=== PATIENT | female | born 2005 | race Hispanic/Latino ===

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

== ENCOUNTER 2023-07-01 10:36 | Emergency (ER) | payer OTHER, SELFPAY ==
--- OUTSIDE RECORDS SUMMARY | 2023-07-01 10:39 | XMS REPORT | Continuity of Care Document ---
:2005 Author Organization [facility] t Address [address] [facility] [address] [place] [address] Care Team Providers Name Role Phone ARELIS CARRANZA Primary Care Physician Unavailable FABIOLA DOYLE Attending Clinician Unavailable PRISCILLA DAUGHERTY Attending Clinician Unavailable Priscilla Daugherty MD Attending Clinician Only, Ang Db Test Attending Clinician Unavailable Malinda Linares Attending Clinician MALINDA PARADA Attending Clinician Unavailable Doctor Unassigned, [place] Attending Clinician Unavailable Holden Hernandez MD Attending Clinician HOLDEN HERNANDEZ Attending Clinician Unavailable Fabiola Doyle PA-C Attending Clinician THOMAS MACHADO II Attending Clinician Unavailable Payers Payer Name Policy Type Policy Number Effective Date Expiration Date [facility] [id number] 2017 00:00:00 Problems Condition Condition Condition Status Onset Resolution Last Treating Co mments Source Name Details Category Date Date Treatment Clinician Date Nexplanon Nexplanon Disease Active Uni vers in place in place 01-27 ity of 00:00: [address] Allergies, Adverse Reactions, Alerts Allergy Allergy Status Severity Reaction(s) Onset Inactive Treating Comm ents Source Name Type Date Date Clinician NO KNOWN Drug Active Univers ALLERGIE Class ity of S [facility] Social History Social Habit Start Date Stop Date Quantity Comments Source History SDOH University o f Alcohol Frequency [place] M edical Branch History SDOH University o f Alcohol Std [place] Medical Drinks Branch History SDOH University o f Alcohol Binge [place] [facility] al Branch Exposure to Not sure University SARS-CoV-2 [facility] (event) Branch Alcohol intake 2021-05-17 2021-05-17 Current drinker Unive rsity of 00:00:00 00:00:00 of alcohol [facility] (finding) Branch Tobacco use and 2021-01-12 2021-01-12 Never used Universit y of exposure 00:00:00 00:00:00 [facility] Alcohol Comment 2021-01-12 2021-01-12 social Universit y of 00:00:00 00:00:00 [facility] Sex Assigned At [birth year] Universit y of 00:00:00 00:00:00 [facility] Smoking Status Start Date Stop Date Source Never smoker [facility] Medications Ordered Filled Start Stop Current Ordering Indication Dosage Frequency Signature Comments Components Source Medication Medication Date Date Medication? Clinician (SIG) Name Name montelukast Yes [id number] 10mg Take 1 Univers (SINGULAIR) -27 tablet by ity of 10 mg 00:00: mouth [place] tablet 00 daily. Medical Branch fluticasone Yes [id number] 2{spray Use 2 Univers propionate 9-27 } Sprays in ity of 50 00:00: each [place] mcg/actuati 00 nostril 2 Med ical on nasal (two) Branch spray times daily. azelastine Yes [id number] 2{spray Use 2 Univers 137 mcg 9-27 } Sprays in ity of (0.1 %) 00:00: each [place] nasal spray 00 nostril 2 Med ical (two) Branch times daily. Use in each nostril as directed VYVANSE 40 Univer s mg capsule 5-10 05-17 ity of 00:00: 00:00 [place] 00 :00 Medical Branch Vital Signs Vital Name Observation Time Observation Value Comments Source Systolic blood 2021-05-17 14:19:00 115 mm[Hg] Univer sity of pressure [facility] Diastolic blood 2021-05-17 14:19:00 75 mm[Hg] Unive rsity of pressure [facility] Heart rate 2021-05-17 14:19:00 76 [facility] Body temperature 2021-05-17 14:19:00 36.33 [place] Univ ersity of [facility] Respiratory rate 2021-05-17 14:19:00 20 /[facility] height 2021-05-17 14:19:00 160 [facility] Body weight 2021-05-17 14:19:00 84.868 kg [facility] BMI 2021-05-17 14:19:00 33.14 kg/m2 [facility] Body mass index 2021-05-17 14:19:00 97.00 % Unive rsity of (BMI) [Percentile] [facility] ical Per age and sex Branch Oxygen saturation in 2021-05-17 14:19:00 94 /min [facility] Arterial blood by [facility] Pulse oximetry Branch Procedures This patient has no known procedures. Encounters Start End Encounter Admission Attending Care Care Encounter Source Date/Time Date/Time Type Type Clinicians Facility Department ID 2022-12-13 2022-12-13 Outpatient SFA [facility] [id number] [place] 13:46:03 13:46:03 [id number] [place] 2022-01-13 2022-01-13 Outpatient Sanya DOYLE [facility] [id number] [facility] 15:30:00 15:30:00 FABIOLA waggoner [facility] [place] [facility] 2021-08-16 2021-08-16 Outpatient Sanya DAUGHERTY [facility] [id number] [facility] 12:00:00 12:00:00 PRISCILLA dockery [facility] 2021-05-17 2021-05-17 Office Raghav [facility] [id number] [facility] 09:06:30 10:35:58 Visit Priscilla TOWNSEND [id number] ity of CARE [id number] Nerissa KELLY [phone] Oh dical 056 Branch 2021-05-17 2021-05-17 Outpatient Sanya DAUGHERTY [facility] [id number] Univers 09:00:00 09:00:00 PRISCILLA waggoner o f [facility] 2021-05-17 2021-05-17 Letter Raghav [facility] [id number] Univers 00:00:00 00:00:00 (Out) Priscilla TOWNSEND [id number] [id number] [place] [id number] [place] dical [address] [place] 2021-05-08 2021-05-08 Laboratory Only, Ang Db Test [facility] [id number] Univers 17:16:37 17:31:37 [facility] [id number] ity of [place] [id number] Brijesh as Jun?Blea [phone] Oh dical [address] Medical Office [facility] [address] 2021-05-08 2021-05-08 Outpatient R TAL [facility] [id number] Univers 17:30:00 17:30:00 MALINDA waggoner o f [facility] 2021-04-16 2021-04-16 Orders Doctor NIKKIE [id number] Univers 00:00:00 00:00:00 Only Unassigned, EM[place] [id number] ity of [place] [facility] [id number] Brijesh as [phone] [address] 2021-01-27 2021-01-27 Office Holden Hernandez [facility] [id number] Univers 14:15:24 15:05:18 Visit Cam Jesus [id number] [id number] [phone] Oh dical nal [address] [facility] 2021-01-27 2021-01-27 Office Holden Hernandez [place] [id number] 14:15:24 15:05:18 Visit Cam Jesus [id number] [place] [id number] Professio [phone] [address] 2021-01-27 2021-01-27 Outpatient R HOLDEN HERNANDEZ [facility] [id number] Univers 14:30:00 14:30:00 ity [facility] [place] [facility] 2021-01-27 2021-01-27 Orders Doctor NIKKIE [id number] Univers 00:00:00 00:00:00 Only Unassigned, EM[place] [id number] ity of [place] [facility] [id number] Brijesh as [phone] [address] 2021-01-27 2021-01-27 Letter Holden Hernandez [facility] [id number] Univers 00:00:00 00:00:00 (Out) Bryce Lee [id number] [id number] [phone] [address] 2021-01-12 2021-01-12 Office Vivek [facility] [id number] Univers 16:03:38 16:33:38 Visit Fabiola Lee [id number] [id number] [phone] [address] 2021-01-12 2021-01-12 Outpatient R VIVEK [facility] [id number] Univers 15:30:00 15:30:00 FABIOLA waggoner [facility] [place] [facility] 2021-01-12 2021-01-12 Hortensia Doyle [facility] [id number] Univers 00:00:00 00:00:00 (Out) Fabiolajazmin Lee [id number] [id number] [phone] [address] 2020-06-16 2020-06-16 Outpatient R JEANNETTE WARREN [facility] [id number] Univers 13:00:00 13:00:00 THOMAS waggoner [facility] [place] [facility] Results This patient has no known results.
[2023-07-01] MEDS ORDERED: dexAMETHasone 10 MG/ML VIAL ONE (11:15)
[2023-07-01] MEDS ORDERED: KETOROLAC 30 MG/ML INJ ONE (11:15)
[2023-07-01] MEDS ORDERED: dexAMETHasone 4 MG TAB ONE (11:17)
[2023-07-01] MEDS ORDERED: MAGNES/ALUMIN/SIMET 30ML UCUP ONE (11:35)
--- NOTE | 2023-07-01 12:04 | ER ---
Nurse's Notes [facility] Name: Wendy Pereira Age: 18 yrs Sex: Female : 2005 Arrival Date: 07/01/2023 Time: 10:36 Bed 17 Private MD: Diagnosis: Acute pharyngitis, unspecified Presentation: 07/01 10:44 Chief complaint: Patient states: WISE, sore throat, body aches, fever, R eye pain, ll1 fatigue for 3 days. Coronavirus screen: Vaccine status: Patient reports being unvaccinated. Client denies travel out of the [place] in the last 14 days. chills, fatigue, fever, headache, muscle pain, sore throat, Client presents with at least one sign or symptom that may indicate coronavirus-19. Standard/surgical mask placed on the client. Ebola Screen: Patient denies travel to an Ebola-affected area in the 21 days before illness onset. Initial Sepsis Screen: Does the patient meet any 2 criteria? No. Patient's initial sepsis screen is negative. Does the patient have a suspected source of infection? Yes: Other: sore throat, fever, WISE. Risk Assessment: Do you want to hurt yourself or someone else? Patient reports no desire to harm self or others. Onset of symptoms was June 29, 2023. 10:44 Method Of Arrival: Ambulatory ll1 10:44 Acuity: CRYS 4 ll1 Triage Assessment: 10:48 Headache History: The patient has had previous headaches and this one is similar to rs5 previous episodes. General: Appears in no apparent distress. uncomfortable, Behavior is calm, cooperative. Pain: Also complains of. Pain: Complains of pain in throat, head Pain does not radiate. Pain currently is 8 out of 10 on a pain scale. Quality of pain is described as aching, Is continuous. Historical: - Allergies: 10:44 No Known Allergies; ll1 - PMHx: 10:44 ADD/ADHD; seasonal allergies; Asthma; ll1 - PSHx: 10:44 None; ll1 - Immunization history:: Client reports having NOT received the Covid vaccine. - Social history:: Smoking status: Reported history of juuling and/or vaping. Patient denies any tobacco usage or history of. Screenin:42 [facility] ED Fall Risk Assessment (Adult) History of falling in the last 3 months, rs5 including since admission No falls in past 3 months (0 pts) Confusion or Disorientation No (0 pts) Intoxicated or Sedated No (0 pts) Impaired Gait No (0 pts) Mobility Assist Device Used No (0 pt) Altered Elimination No (0 pt) Score/Fall Risk Level 0 - 2 = Low Risk Oriented to surroundings, Maintained a safe environment. 10:42 Abuse screen: Denies threats or abuse. Nutritional screening: No deficits noted. rs5 Tuberculosis screening: No symptoms or risk factors identified. Assessment: 10:48 General: Appears in no apparent distress. uncomfortable, Behavior is calm, cooperative. rs5 Pain: Complains of pain in throat Pain does not radiate. Pain currently is 8 out of 10 on a pain scale. Quality of pain is described as burning, aching, Pain began 2-3 days ago. Is continuous. Neuro: Level of Consciousness is awake, alert, obeys commands, Oriented to person, place, time, situation. 10:48 Cardiovascular: Heart tones S1 S2 present Rhythm is regular. Respiratory: Airway is rs5 patent Respiratory effort is even, unlabored, Respiratory pattern is regular, symmetrical, Breath sounds are clear bilaterally. GI: Abdomen is round non-distended, Bowel sounds present X 4 quads. Abd is soft and non tender X 4 quads. 10:48 : No signs and/or symptoms were reported regarding the genitourinary system. EENT: No rs5 signs and/or symptoms were reported regarding the EENT system. Derm: Skin Skin is pink, warm \T\ dry. Musculoskeletal: Range of motion: intact in all extremities. 11:33 Reassessment: Patient and/or family updated on plan of care and expected duration. Pain rs5 level reassessed. Patient is alert, oriented x 3, equal unlabored respirations, skin warm/dry/pink. Patient states feeling better. Patient states symptoms have improved. Vital Signs: 10:44 Weight 78.02 kg; Height 5 ft. 3 in. ; Pain 9/10; ll1 11:05 BP 118 / 82; Pulse 74; Resp 17; Pulse Ox 99% on R/A; rs5 12:00 BP 120 / 79; Pulse 73; Resp 17; Temp 99; Pulse Ox 99% on R/A; rs5 10:44 Body Mass Index 30.47 (78.02 kg, 160.02 cm) ll1 10:44 Pain Scale: Adult ll1 ED Course: 10:40 Patient arrived in ED. im 10:40 Carl Erazo MD is Attending Physician. ec2 10:42 Patient has correct armband on for positive identification. Bed in low position. Call rs5 light in reach. Side rails up X2. 10:44 Arm band placed on Patient placed in an exam room, on a stretcher. ll1 10:46 Triage completed. ll1 10:47 Angelo Nieto, RN is Primary Nurse. rs5 12:16 No provider procedures requiring assistance completed. Patient did not have IV access rs5 during this emergency room visit. Administered Medications: 11:00 Drug: Ketorolac IM 30 mg IM once Route: IM; Site: left deltoid; rs5 11:30 Follow up: Response: No adverse reaction; Pain is decreased rs5 11:10 Drug: Dexamethasone PO 10 mg PO once Route: PO; rs5 11:32 Follow up: Response: No adverse reaction rs5 11:20 Drug: Alum-Mag Hydroxide-Simeth PO Suspension (200 mg-200 mg-20 mg/5 mL) 30 ml PO once rs5 Route: PO; 11:30 Not Given (Per MD orderss): viscous lidocaineliquid (4 %) 10 ml Mucous Membrane once rs5 Medication: 12:16 VIS not applicable for this client. rs5 Outcome: 12:04 Discharge ordered by MD. ec2 12:16 Discharged to home ambulatory, with family, rs5 12:16 Condition: stable 12:16 Discharge instructions given to patient, family, Instructed on discharge instructions, follow up and referral plans. medication usage, Demonstrated understanding of instructions, follow-up care, medications, Prescriptions given X 1, 12:17 Patient left the ED. rs5 Signatures: Ana Haider RN RN ll1 Angelo Nieto RN RN rs5 Jessy Aldana im Carl Erazo MD MD ec2
--- NOTE | 2023-07-01 12:04 | EDPHYS ---
Physician Documentation [facility] Name: Wendy Pereira Age: 18 yrs Sex: Female : 2005 Arrival Date: 07/01/2023 Time: 10:36 Bed 17 Private MD: ED Physician Carl Erazo HPI: 07/01 10:55 This 18 yrs old Female presents to ER via Ambulatory with complaints of ec2 Swollen Tonsils, Fever, Headache, Eye Pain. 10:55 Patient arrives today due to concern for URI signs and symptoms. States that she is ec2 having sore throat as well as worsening anterior neck swelling. Patient reports subjective fevers and chills as well as headaches. States that she has been on Augmentin for 2 days and has not had improvement in her symptoms. Has not taken any medication for pain. No vomiting or diarrhea. . Historical: - Allergies: 10:44 No Known Allergies; ll1 - PMHx: 10:44 ADD/ADHD; seasonal allergies; Asthma; ll1 - PSHx: 10:44 None; ll1 - Immunization history:: Client reports having NOT received the Covid vaccine. - Social history:: Smoking status: Reported history of juuling and/or vaping. Patient denies any tobacco usage or history of. ROS: 10:55 Constitutional: as per hpi ec2 Exam: 10:55 Constitutional: GEN: NAD Head: atraumatic Eyes: EOMI Ears: External ears are normal. ec2 Mouth: Posterior pharyngeal erythema without exudates appreciated, anterior cervical lymphadenopathy noted CV: regular rate LUNGS: no respiratory distress ABD: non-distended SKIN: no evidence of rashes MSK: no evidence of trauma NEURO: moves all extremities equally Vital Signs: 10:44 Weight 78.02 kg; Height 5 ft. 3 in. ; Pain 9/10; ll1 11:05 BP 118 / 82; Pulse 74; Resp 17; Pulse Ox 99% on R/A; rs5 12:00 BP 120 / 79; Pulse 73; Resp 17; Temp 99; Pulse Ox 99% on R/A; rs5 10:44 Body Mass Index 30.47 (78.02 kg, 160.02 cm) ll1 10:44 Pain Scale: Adult ll1 MDM: 10:40 Patient medically screened. ec2 10:55 ED course: Patient arrives today due to concern for URI signs and symptoms. Examination ec2 remarkable for well-appearing nontoxic individual who has mild findings as noted above. We will give the patient steroids as well as Toradol and viscous lidocaine, obtain viral swabs as well as strep swab. Currently considering strep pharyngitis that is not improved with her current medication of Augmentin, viral process. Low suspicion for deep space infection.. 11:54 Data reviewed: vital signs. ED course: Patient negative for COVID, strep and flu. I ec2 suspect other viral process or potentially antibiotics have resulted and are negative on her strep swab. Regardless will discharge home with prescription for Zofran and have her follow-up with primary care doctor. I instructed her on [id number] medications. . 07/01 10:55 Order name: COVID-19 SARS RT PCR; Complete Time: 11:53 ec2 07/01 10:55 Order name: Strep ec2 07/01 10:55 Order name: Influenza Screen (a \T\ B); Complete Time: 11:53 ec2 07/01 11:36 Order name: Throat Culture EDMS Administered Medications: 11:00 Drug: Ketorolac IM 30 mg IM once Route: IM; Site: left deltoid; rs5 11:30 Follow up: Response: No adverse reaction; Pain is decreased rs5 11:10 Drug: Dexamethasone PO 10 mg PO once Route: PO; rs5 11:32 Follow up: Response: No adverse reaction rs5 11:20 Drug: Alum-Mag Hydroxide-Simeth PO Suspension (200 mg-200 mg-20 mg/5 mL) 30 ml PO once rs5 Route: PO; 11:30 Not Given (Per MD orderss): viscous lidocaineliquid (4 %) 10 ml Mucous Membrane once rs5 Disposition Summary: 07/01/23 12:04 Discharge Ordered Notes: Location: Home ec2 Condition: Stable ec2 Diagnosis - Acute pharyngitis, unspecified ec2 Discharge Instructions: - Discharge Summary Sheet ec2 - Pharyngitis ec2 Forms: - School release form rs5 - Work release form rs5 - Medication Reconciliation Form ec2 - Thank You Letter ec2 - Antibiotic Education ec2 - Prescription Opioid Use ec2 - Patient Portal Instructions ec2 - Leadership Thank You Letter ec2 Prescriptions: - Zofran 4 mg Oral Tablet - take 1 tablet ORAL route every 12 hours As needed; 20 tablet; Refills: 0, ec2 Product Selection Permitted Signatures: Dispatcher [employer] Ana Khanna RN RN ll1 Angelo Nieto RN RN rs5 Carl Erazo MD MD ec2 Corrections: (The following items were deleted from the chart) 10:56 10:55 Patient arrives today due to concern for URI signs and symptoms. States that she ec2 is having sore throat as well as worsening anterior neck swelling. Patient reports subjective fevers and chills as well as headaches. States that she has been on Augmentin for 2 days and has not had improvement in her symptoms. Has not taken any medication for pain. No vomiting or diarrhea. . ec2
[2023-07-01 12:44] VITALS: BP 118/82; O2SAT 99
== END 2023-07-01 12:17 | disposition home or self-care (01) ==
LOC: ER 10:36
DX: J02.9 Acute pharyngitis, unspecified (principal)
CPT/HCPCS: 87070; 87081; 87635; 87804; 96372; 99284; J1100; J8540